=== PATIENT | male | born 1995 | race Caucasian/White ===

== ENCOUNTER 2020-04-02 00:36 | Emergency (ER) | payer OTHER ==
[~2020-04-02] VITALS: Ht 195.6 cm; Wt 102.3 kg
[2020-04-02 00:40] VITALS: TEMP 98.4
[2020-04-02 01:17] VITALS: BP 142/85; PULSE 74
== END 2020-04-02 01:17 | disposition home or self-care (01) ==
LOC: COL.ER 00:36
DX: S63.115A Dislocation of metacarpophalangeal joint of left thumb, initial encounter (principal); X50.0XXA Overexertion from strenuous movement or load, initial encounter; Y92.29 Other specified public building as the place of occurrence of the external cause; Y99.0 Civilian activity done for income or pay